=== PATIENT | male | born 1945 | race Hispanic/Latino ===

== ENCOUNTER → 2016-09-04 | Outpatient (CLI) | payer MEDICARE | END | disposition home or self-care (01) | LOC: LAB.O 06:56 | PROVIDERS: ATTEND Internal Medicine Gastroenterology | DX: Z94.4 Liver transplant status (principal) ==

== ENCOUNTER → 2016-09-24 | Outpatient (CLI) | payer MEDICARE | END | disposition home or self-care (01) | LOC: LAB.O 07:06 | PROVIDERS: ATTEND Internal Medicine Gastroenterology | DX: Z94.4 Liver transplant status (principal) ==

== ENCOUNTER → 2016-12-25 | Outpatient (CLI) | payer MEDICARE | END | disposition home or self-care (01) | LOC: LAB.O 06:59 | PROVIDERS: ATTEND Internal Medicine Gastroenterology | DX: Z94.4 Liver transplant status (principal) ==

== ENCOUNTER → 2017-04-02 | Outpatient (CLI) | payer MEDICARE | END | disposition home or self-care (01) | LOC: LAB.O 06:57 | PROVIDERS: ATTEND Internal Medicine Critical Care Medicine | DX: K76.6 Portal hypertension (principal); Z94.4 Liver transplant status ==

== ENCOUNTER → 2017-05-26 | Outpatient (CLI) | payer MEDICARE | LOC: LAB.O 06:50 | PROVIDERS: ATTEND Internal Medicine Gastroenterology | DX: Z94.4 Liver transplant status (principal) ==

== ENCOUNTER → 2017-07-07 | Outpatient (CLI) | payer MEDICARE ==
--- NOTE | 2017-07-07 12:54 | CT ---
EXAM DESCRIPTION: CT ABDOMEN AND PELVIS WITHOUT AND WITH CONTRAST CLINICAL HISTORY: R10.31,Z94.4 COMPARISON: June 14, 2016 TECHNIQUE: CT of the abdomen and pelvis are performed prior to and during IV bolus administration of 100 mL of Isovue 300. Oral contrast media is administered as well. This exam was performed according to our departmental dose-optimization program, which includes automated exposure control, adjustment of the mA and/or kV according to patient size and/or use of iterative reconstruction technique. FINDINGS: The lung bases are clear without infiltrate or effusions. The liver normally enhances without cystic or solid mass with mild diffuse fatty replacement. The gallbladder is surgically absent. A mildly 13 cm spleen is present. The adrenal glands and pancreas are unremarkable. The kidneys normally enhance without obstruction or mass or stone. A retroaortic left renal vein is noted. Mildly prominent spleno renal varices are noted with a patent splenic vein and portal vein. Morphologic changes of cirrhosis of the liver are not apparent. The stomach is not significantly distended with small bowel loops in the upper range of normal without marked distention. The distal small bowel loops are smaller and more normal in size. Mild enteritis or ileus or a low-grade incomplete obstruction would be a consideration but a high-grade obstruction is not apparent. No pelvic or abdominal ascites is noted. Mild grade 1 degenerative spondylolisthesis at L5-S1 and L4-5 with degenerative disc narrowing is noted. Mild prostatic hypertrophy and calcification is noted. The bladder is incompletely distended and appears slightly thick-walled and trabeculated. The anterior abdominal wall and inguinal region is unremarkable. IMPRESSION: 1. Minimally prominent proximal and mid small bowel loops in the upper range of normal with smaller distal small bowel loops. A mild ileus or enteritis should be considered but a low-grade incomplete obstruction cannot be completely excluded. 2. Prior cholecystectomy and mild diffuse fatty infiltration of the liver. 3. Stable but modest spleno renal varices on the left with mild splenomegaly, unchanged from unenhanced study 2015 4. Small thick walled trabeculated bladder, to a large degree likely related to incomplete distention. Electronically signed by: Hamilton Adair MD 07/07/2017 12:53 PM [employer] [employer]
== END | disposition home or self-care (01) ==
LOC: GMAB 10:26
PROVIDERS: ATTEND Family Medicine
DX: R10.31 Right lower quadrant pain (principal); Z94.4 Liver transplant status

== ENCOUNTER → 2017-08-26 | Outpatient (CLI) | payer MEDICARE | LOC: LAB.NP 06:54 | PROVIDERS: ATTEND Internal Medicine Gastroenterology | DX: Z94.4 Liver transplant status (principal) ==

== ENCOUNTER → 2018-01-27 | Outpatient (CLI) | payer MEDICARE | LOC: LAB.O 01-25 07:03 | PROVIDERS: ATTEND Internal Medicine Gastroenterology | DX: Z48.23 Encounter for aftercare following liver transplant (principal); Z79.899 Other long term (current) drug therapy ==

== ENCOUNTER → 2018-02-22 | Outpatient (CLI) | payer MEDICARE | LOC: LAB.O 07:12 | PROVIDERS: ATTEND Internal Medicine Gastroenterology | DX: Z48.23 Encounter for aftercare following liver transplant (principal); Z79.899 Other long term (current) drug therapy ==

== ENCOUNTER → 2018-04-21 | Outpatient (CLI) | payer MEDICARE | LOC: LAB.O 06:53 | PROVIDERS: ATTEND Internal Medicine Gastroenterology | DX: Z48.23 Encounter for aftercare following liver transplant (principal); Z79.899 Other long term (current) drug therapy ==

== ENCOUNTER → 2018-05-25 | Outpatient (CLI) | payer MEDICARE | LOC: LAB.O 06:49 | PROVIDERS: ATTEND Internal Medicine Gastroenterology | DX: Z79.899 Other long term (current) drug therapy (principal) ==

== ENCOUNTER → 2018-07-21 | Outpatient (CLI) | payer MEDICARE | LOC: LAB.O 07:19 | PROVIDERS: ATTEND Internal Medicine Gastroenterology | DX: Z79.899 Other long term (current) drug therapy (principal) ==

== ENCOUNTER → 2018-09-05 | Outpatient (CLI) | payer MEDICARE | LOC: LAB.O 07:01 | PROVIDERS: ATTEND Internal Medicine Gastroenterology | DX: Z48.23 Encounter for aftercare following liver transplant (principal); Z79.899 Other long term (current) drug therapy ==

== ENCOUNTER → 2018-09-20 | Outpatient (CLI) | payer MEDICARE | LOC: LAB.O 07:09 | PROVIDERS: ATTEND Internal Medicine Gastroenterology | DX: Z48.23 Encounter for aftercare following liver transplant (principal); Z79.899 Other long term (current) drug therapy ==

== ENCOUNTER → 2018-12-23 | Outpatient (CLI) | payer MEDICARE | LOC: LAB.O 07:30 | PROVIDERS: ATTEND Internal Medicine Gastroenterology | DX: Z48.23 Encounter for aftercare following liver transplant (principal); Z79.899 Other long term (current) drug therapy ==

== ENCOUNTER → 2019-02-22 | Outpatient (CLI) | payer MEDICARE | LOC: LAB.O 07:00 | PROVIDERS: ATTEND Internal Medicine Gastroenterology | DX: Z79.899 Other long term (current) drug therapy (principal); Z48.23 Encounter for aftercare following liver transplant ==

== ENCOUNTER → 2019-03-31 | Outpatient (CLI) | payer MEDICARE | LOC: LAB.O 07:01 | PROVIDERS: ATTEND Internal Medicine Gastroenterology | DX: Z48.23 Encounter for aftercare following liver transplant (principal); Z79.899 Other long term (current) drug therapy ==

== ENCOUNTER → 2019-04-26 | Outpatient (CLI) | payer MEDICARE | LOC: LAB.O 07:09 | PROVIDERS: ATTEND Internal Medicine Gastroenterology | DX: Z48.23 Encounter for aftercare following liver transplant (principal) ==

== ENCOUNTER → 2019-06-25 | Outpatient (CLI) | payer MEDICARE | LOC: LAB.O 07:04 | PROVIDERS: ATTEND Internal Medicine Gastroenterology | DX: Z94.4 Liver transplant status (principal); D69.6 Thrombocytopenia, unspecified ==

== ENCOUNTER → 2019-06-27 | Outpatient (CLI) | payer MEDICARE | LOC: LAB.O 06:58 | PROVIDERS: ATTEND Internal Medicine Gastroenterology | DX: D69.6 Thrombocytopenia, unspecified (principal); Z94.4 Liver transplant status ==

== ENCOUNTER → 2019-07-27 | Outpatient (CLI) | payer MEDICARE | LOC: LAB.O 07:07 | PROVIDERS: ATTEND Internal Medicine Gastroenterology | DX: Z48.23 Encounter for aftercare following liver transplant (principal) ==

== ENCOUNTER → 2019-09-07 | Outpatient (CLI) | payer MEDICARE | LOC: LAB.O 07:00 | PROVIDERS: ATTEND Internal Medicine Gastroenterology | DX: Z48.23 Encounter for aftercare following liver transplant (principal) ==

== ENCOUNTER → 2019-11-24 | Outpatient (CLI) | payer MEDICARE | LOC: LAB.O 14:43 | PROVIDERS: ATTEND Internal Medicine Gastroenterology | DX: Z48.23 Encounter for aftercare following liver transplant (principal); D69.6 Thrombocytopenia, unspecified ==

== ENCOUNTER → 2019-12-05 | Outpatient (CLI) | payer MEDICARE | LOC: LAB.O 07:08 | PROVIDERS: ATTEND Internal Medicine Gastroenterology | DX: Z48.23 Encounter for aftercare following liver transplant (principal) ==

== ENCOUNTER → 2019-12-19 | Outpatient (CLI) | payer MEDICARE | LOC: LAB.O 07:10 | PROVIDERS: ATTEND Internal Medicine Gastroenterology | DX: Z48.23 Encounter for aftercare following liver transplant (principal) ==

== ENCOUNTER → 2019-12-26 | Outpatient (CLI) | payer MEDICARE | LOC: LAB.O 07:14 | PROVIDERS: ATTEND Internal Medicine Medical Oncology | DX: D47.2 Monoclonal gammopathy (principal) ==

== ENCOUNTER → 2019-12-27 | Outpatient (CLI) | payer MEDICARE | LOC: LAB.O 09:09 | PROVIDERS: ATTEND Internal Medicine Medical Oncology | DX: D47.2 Monoclonal gammopathy (principal) ==

== ENCOUNTER → 2020-01-23 | Outpatient (CLI) | payer MEDICARE | LOC: LAB.O 07:05 | PROVIDERS: ATTEND Internal Medicine Gastroenterology | DX: Z48.23 Encounter for aftercare following liver transplant (principal) ==

== ENCOUNTER → 2020-03-25 | Outpatient (CLI) | payer MEDICARE | LOC: LAB.O 07:00 | PROVIDERS: ATTEND Internal Medicine Gastroenterology | DX: Z48.23 Encounter for aftercare following liver transplant (principal) ==

== ENCOUNTER → 2020-04-02 | Outpatient (CLI) | payer MEDICARE | LOC: LAB.O 06:59 | PROVIDERS: ATTEND Internal Medicine Medical Oncology | DX: C90.00 Multiple myeloma not having achieved remission (principal) ==

== ENCOUNTER → 2020-06-24 | Outpatient (CLI) | payer MEDICARE | LOC: LAB.O 07:09 | PROVIDERS: ATTEND Physician Assistant Medical | DX: C90.00 Multiple myeloma not having achieved remission (principal) ==

== ENCOUNTER → 2020-07-15 | Outpatient (CLI) | payer MEDICARE | LOC: LAB.O 07:19 | PROVIDERS: ATTEND Internal Medicine Gastroenterology | DX: Z94.4 Liver transplant status (principal) ==

== ENCOUNTER → 2020-07-23 | Outpatient (CLI) | payer MEDICARE | LOC: LAB.O 07:02 | PROVIDERS: ATTEND Internal Medicine Gastroenterology | DX: Z48.23 Encounter for aftercare following liver transplant (principal) ==

== ENCOUNTER 2020-07-30 09:59 | Emergency (ER) | payer MEDICARE ==
--- NOTE | 2020-07-30 12:15 | ED.PDOC ---
History of Present Illness - General Source: patient Exam Limitations: no limitations - History of Present Illness Initial Comments: ANEMIA. PT WAS TOLD TO COME TO ER TODAY TO REPEAT LABS. H/O GI BLEED, WAS TX AT [facility] AND FOUND JEJUNAL BLEED PER EGD. SPENT 3 WKS IN HOSPITAL AND RECEIVED 12 UNITS OF BLOOD. LIVER TRANSPLANT 8 YR AGO AT [facility]. PT DENIES SX TODAY. NO BLOOD IN STOOLS. NO HEMATEMESIS. Severity: mild Improving Factors: nothing Worsening Factors: nothing Associated Symptoms: denies symptoms <Tello Briceno - Last Filed: 07/31/20 06:59> <Charli Lentz - Last Filed: 07/31/20 14:22> - General Chief Complaint: General Stated Complaint: abnormal lab work,low hemoglobin Time Seen by Provider: 07/30/20 10:38 - History of Present Illness Allergies/Adverse Reactions: Allergies NO KNOWN ALLERGY Allergy (Verified 06/13/16 17:47) Home Medications: Ambulatory Orders Levothyroxine Sodium [Synthroid] 112 mcg PO DAILY 06/13/16 Macitentan [Opsumit] 10 mg PO DAILY 06/13/16 Magnesium Oxide (mg Supplement [Magnesium Oxide] 400 mg PO DAILY 06/13/16 Omeprazole [Prilosec] 20 mg PO BID 06/13/16 Tacrolimus [Prograf] 2 mg PO BID 06/13/16 Tadalafil (Pulmonary Hypertens [Adcirca] 40 mg DAILY 06/13/16 Review of Systems - Review of Systems Constitutional: Denies: chills, fever, malaise, weakness EENTM: States: no symptoms reported Respiratory: Denies: cough, short of breath Cardiology: Denies: chest pain, palpitations Gastrointestinal/Abdominal: Denies: abdominal pain, nausea, vomiting Genitourinary: Denies: dysuria, frequency Musculoskeletal: Denies: back pain, joint pain, neck pain Skin: Denies: lesions, rash Neurological: Denies: headache, paresthesia, weakness Endocrine: Denies: increased thirst, unexplained weight gain, unexplained weight loss Hematologic/Lymphatic: Denies: easy bleeding, easy bruising All other Systems: Reviewed and Negative <Tello Briceno - Last Filed: 07/31/20 06:59> Past Medical History (General) - Patient Medical History Hx Seizures: No Hx Stroke: No Hx Asthma: No Hx of COPD: No - pulmonary htn Hx Congestive Heart Failure: No Hx Pacemaker: No Hx Hypertension: Yes Hx Diabetes: No Hx Cancer: No Hx MRSA: No - Vaccination History Hx Influenza Vaccination: Yes Hx Pneumococcal Vaccination: Yes - Social History Hx Tobacco Use: Yes Hx Alcohol Use: No Hx Substance Use: No Hx Physical Abuse: No Hx Emotional Abuse: No <Tello Briceno - Last Filed: 07/31/20 06:59> Family Medical History - Family History Mother Family History: Unknown <Tello Briceno - Last Filed: 07/31/20 06:59> Physical Exam - Physical Exam General Appearance: Alert, No apparent distress Eye Exam: bilateral normal Ears, Nose, Throat: hearing grossly normal, normal ENT inspection, normal pharynx Neck: full range of motion, normal inspection Respiratory: lungs clear, normal breath sounds, no respiratory distress, no accessory muscle use Cardiovascular/Chest: regular rate, rhythm, no murmur Peripheral Pulses: radial,right: 2+, radial,left: 2+ Gastrointestinal/Abdominal: normal bowel sounds, non tender, soft, no organomegaly, no pulsatile mass Rectal Exam: normal exam, normal rectal tone, heme positive stool - NO GROSS BLOOD. Back Exam: normal inspection Extremity: normal range of motion, normal inspection Neurologic: no motor/sensory deficits, alert, normal mood/affect Skin Exam: normal color, warm/dry Lymphatic: no adenopathy <Tello Briceno - Last Filed: 07/31/20 06:59> Progress - Progress Progress: HGB 6.1, GIVING 2 UNTIS PRBC. HEMOCCULT POS. NO MELENA OR HEMATOCHEZIA. GI BLEED - LIKELY JEJUNAL RE-BLEED. PT MENTIONS HE HAD CLIPS PLACED ON EGD. LACTIC ACID 2.7, GIVING IVF AND PRBC. COVID NEG. COAGS NEG. EKG NSR. CMP UNREMARKABLE. 07/30/20 15:08 PROLONGED STAY: LIVER TRANSPLANT PT FROM [facility] WITH GI BLEED, ANEMIA. WE ARE ATTEMPTING TO TRANSFER TO [facility] BUT THEY TOLD US IT MIGHT NOT BE UNTIL TOMORROW THEY ARE FULL. 07/30/20 18:50 2 UNITS PRBC COMPLETED. BP 99/44. WILL BOLUS 1 L NS. CHECKING HGB. THEN LIKELY 2 MORE UNITS PRBC. 07/30/20 21:14 HGB INCREASED ONLY FROM 6.1 TO 6.2 AFTER 2 UNITS PRBC. GIVING 3 MORE UNITS, TO A TOTAL OF 5 UNITS. [facility] IS STILL FULL AND UNABLE TO TAKE THE GI BLEED RENAL TRANSPLANT TRANSFER. BP IMPROVED WITH BOLUS TO 122/57 07/31/20 00:29 PT CURRENTLY GETTING 2ND OF 3 UNITS PRBC (4TH OF 5 OVERALL). VSS. PT FEELING WELL. NO DYSPNEA OR TRANSFUSION RXN. BP REMAINING WNL (SBP 120'S). WILL CHECK H&H 1 HR AFTER 5TH OVERALL UNIT. IF STILL BELOW 7, WE WILL GIVE 2 MORE UNITS. IF ABOVE 7, WE WILL REASSESS. 07/31/20 06:59 DR. GUPTA IS ASSUMING PT CARE. I BRIEFED HIM ON THE PT'S STATUS AND PLAN. - EKG/XRAY/CT EKG: Sinus <Tello Briceno - Last Filed: 07/31/20 06:59> - Progress Progress: I, Dr. Charli Lentz DO, have assumed care of pt. I have reviewed pt's chart along with all pertinent findings of workup. Charli Lentz DO Emergency Medicine Physician [id number] Appropriate PPE of surgical mask, gown, gloves, and eye protection (if encounter >5 minutes) utilized with every patient encounter; in accordance with hospital policy. Mando Calixto is a 75-year-old male with a history of liver transplantation approximately 8 years ago who presented today complaining of acute onset of melena. Patient had blood work performed outpatient Handy was noted to be anemic and told to come to the ER. He currently denies any abdominal pain, nausea/vomiting, fever/chills, chest pain, shortness of breath, body aches, or any known sick contacts. Positive history of similar symptoms with an upper GI bleed and found to have jejunal ulcer that required repair. Again this is all been performed at [facility] where his specialist are located. Denies alleviating/aggravating factors. He has no other signs, symptoms, complaints at this time. My physical examination of patient is unremarkable. He has no abdominal tenderness, distention.He does report recent continued melena passage but no gross bleeding or hematochezia. Presents for acute UGIB with melena. Pt requires transfer to [facility] and I will continue coordinating this. Times have been added into the chart for when I took over pt; however, actual plan for transfer/admission times are unknown as they were not documented. Multiple rechecks of patient throughout ED course. Patient is stable doing well and in no acute distress. He has no signs of clinical decompensation and has had continual improvement throughout ED course. He is hungry and requesting food has been given a meal tray. 12:54 Consulted on the phone with Tacho Moran patient's coordinator at [facility]. She agrees with medication administration as indicated needed for patient. She reconfirms on the phone that [facility] is currently at max bed capacity and as soon as they have an availability for bed for the patient they will notify us. 14:04 I have consulted with Dr. Mendiola at [facility] and discussed patient's case in ED. He accepts patient for transfer. - Results/Orders Results/Orders: 07/31/20 11:30 Octreotide Acetate [SandoSTATIN] 100 mcg Sodium Chloride 0.9% 100Ml [NS (NACL 0.9%) 100ml] 100 ml IVPB PRN Octreotide Acetate [SandoSTATIN] 500 mcg Sodium Chloride 0.9% 100Ml [NS (NACL 0.9%) 100ml] 100 ml IVPB PRN Laboratory Results - last 24 hr 07/30/20 07/30/20 07/30/20 07:15 07:15 11:00 WBC 2.6 L RBC 2.18 L Hgb 6.2 L* Hct 18.9 L MCV 86.7 MCH 28.4 MCHC 32.8 L RDW 16.1 H Plt Count 181 MPV 7.9 Neutrophils % (Manual) 31.0 L Lymphocytes % (Manual) 58.0 Monocytes % (Manual) 8.0 Eosinophils 2.0 Basophils 1.0 Hypochromia 1+ Platelet Estimate Normal Anisocytosis 1+ Sodium 140 Potassium 4.1 Chloride 108 Carbon Dioxide 25 Anion Gap 11.1 L BUN 43 H Creatinine 1.40 H BUN/Creatinine Ratio 30.7 H Random Glucose 167 H Serum Osmolality 294.0 Lactic Acid Calcium 8.4 Phosphorus 2.2 L Magnesium 1.9 Total Bilirubin 0.7 Direct Bilirubin 0.1 Indirect Bilirubin 0.6 AST 13 ALT 10 Alkaline Phosphatase 54 Serum Total Protein 6.3 L Albumin 3.5 Patient ABO/Rh O POSITIVE Antibody Screen Negative Crossmatch See Detail 0107/31/20 07/31/20 19:05 07:14 12:58 WBC RBC Hgb 6.2 L* 8.4 L D 8.2 L Hct 18.9 L 25.0 L D 24.3 L MCV MCH MCHC RDW Plt Count MPV Neutrophils % (Manual) Lymphocytes % (Manual) Monocytes % (Manual) Eosinophils Basophils Hypochromia Platelet Estimate Anisocytosis Sodium Potassium Chloride Carbon Dioxide Anion Gap BUN Creatinine BUN/Creatinine Ratio Random Glucose Serum Osmolality Lactic Acid Calcium Phosphorus Magnesium Total Bilirubin Direct Bilirubin Indirect Bilirubin AST ALT Alkaline Phosphatase Serum Total Protein Albumin Patient ABO/Rh Antibody Screen Crossmatch 07/31/20 12:58 WBC RBC Hgb Hct MCV MCH MCHC RDW Plt Count MPV Neutrophils % (Manual) Lymphocytes % (Manual) Monocytes % (Manual) Eosinophils Basophils Hypochromia Platelet Estimate Anisocytosis Sodium Potassium Chloride Carbon Dioxide Anion Gap BUN Creatinine BUN/Creatinine Ratio Random Glucose Serum Osmolality Lactic Acid 1.3 Calcium Phosphorus Magnesium Total Bilirubin Direct Bilirubin Indirect Bilirubin AST ALT Alkaline Phosphatase Serum Total Protein Albumin Patient ABO/Rh Antibody Screen Crossmatch Vital Signs - 24 hr 07/30/20 07/30/20 07/30/20 15:00 16:00 17:00 Temperature 97.3 F L 97.6 F 97.6 F Pulse Rate [ 68 63 72 Right Brachial] Respiratory 14 16 14 Rate Blood Pressure 122/58 132/65 112/56 [Right Arm] O2 Sat by Pulse 98 99 97 Oximetry 07/30/20 07/30/20 07/30/20 18:00 19:00 20:00 Temperature 97.6 F Pulse Rate [ 73 69 68 Right Brachial] Respiratory 12 14 14 Rate Blood Pressure 127/55 112/61 117/55 [Right Arm] O2 Sat by Pulse 95 96 96 Oximetry 07/30/20 07/30/20 07/30/20 21:00 22:00 22:10 Temperature 97.3 F L Pulse Rate [ 70 68 68 Right Brachial] Respiratory 16 14 16 Rate Blood Pressure 122/57 115/64 134/70 [Right Arm] O2 Sat by Pulse 99 100 93 L Oximetry 07/30/20 07/30/20 07/30/20 22:15 22:30 22:32 Temperature 97.1 F L Pulse Rate [ 68 68 68 Right Brachial] Respiratory 16 16 16 Rate Blood Pressure 127/60 115/64 113/53 [Right Arm] O2 Sat by Pulse 99 99 99 Oximetry 07/30/20 07/30/20 07/31/20 23:00 23:02 00:00 Temperature 97.2 F L Pulse Rate [ 72 69 66 Right Brachial] Respiratory 14 12 16 Rate Blood Pressure 116/57 112/52 125/56 [Right Arm] O2 Sat by Pulse 98 99 99 Oximetry 07/31/20 07/31/20 07/31/20 00:02 00:50 00:52 Temperature 97.2 F L 97.5 F L 97.5 F L Pulse Rate [ 68 69 66 Right Brachial] Respiratory 14 12 16 Rate Blood Pressure 114/59 120/52 111/60 [Right Arm] O2 Sat by Pulse 98 98 99 Oximetry 07/31/20 07/31/20 07/31/20 01:00 01:07 01:22 Temperature 97.2 F L Pulse Rate [ 69 66 66 Right Brachial] Respiratory 16 16 14 Rate Blood Pressure 120/52 111/60 136/64 [Right Arm] O2 Sat by Pulse 98 99 99 Oximetry 07/31/20 07/31/20 07/31/20 01:45 01:52 02:00 Temperature Pulse Rate [ 67 66 63 Right Brachial] Respiratory 12 12 16 Rate Blood Pressure 119/60 105/54 98/45 [Right Arm] O2 Sat by Pulse 99 99 98 Oximetry 07/31/20 07/31/20 07/31/20 02:52 03:33 03:40 Temperature 97.1 F L 97.5 F L Pulse Rate [ 64 65 64 Right Brachial] Respiratory 16 16 16 Rate Blood Pressure 98/45 112/59 106/57 [Right Arm] O2 Sat by Pulse 98 97 98 Oximetry 07/31/20 07/31/20 07/31/20 04:00 04:15 04:30 Temperature 97.2 F L Pulse Rate [ 66 86 97 H Right Brachial] Respiratory 16 16 16 Rate Blood Pressure 110/49 115/66 110/49 [Right Arm] O2 Sat by Pulse 96 96 96 Oximetry 07/31/20 07/31/20 07/31/20 05:00 06:00 07:00 Temperature 97.4 F L 97.3 F L Pulse Rate [ 63 62 65 Right Brachial] Respiratory 16 12 14 Rate Blood Pressure 125/61 120/59 130/73 [Right Arm] O2 Sat by Pulse 97 99 99 Oximetry 07/31/20 07/31/20 07/31/20 08:00 09:00 10:00 Temperature 97.6 F 97.7 F Pulse Rate [ 71 70 69 Right Brachial] Respiratory 21 15 18 Rate Blood Pressure 101/69 108/66 125/62 [Right Arm] O2 Sat by Pulse 92 L 95 94 L Oximetry 07/31/20 07/31/20 07/31/20 11:00 12:00 13:00 Temperature 98.7 F Pulse Rate [ 72 66 68 Right Brachial] Respiratory 18 16 18 Rate Blood Pressure 124/67 118/57 111/60 [Right Arm] O2 Sat by Pulse 97 93 L 96 Oximetry <Charli Lentz - Last Filed: 07/31/20 14:22> Departure <Tello Briceno - Last Filed: 07/31/20 06:59> - Departure Time of Disposition: 07:00 <Charli Lentz - Last Filed: 07/31/20 14:22> - Departure Clinical Impression: Dehydration, Guaiac positive stools, H/O liver transplant Gastrointestinal tract bleed Qualifiers: GI bleed type/associated pathology: unspecified gastrointestinal hemorrhage type Qualified Code(s): K92.2 - Gastrointestinal hemorrhage, unspecified Anemia Qualifiers: Anemia type: other cause Other causes of anemia: acute posthemorrhagic Maximino lified Code(s): D62 - Acute posthemorrhagic anemia Disposition: Transfer to Hospital Condition: Serious Departure Forms: ED Discharge - Pt. Copy, Patient Portal Self Enrollment Referrals: ESDRAS CARTER MD [Primary Care Provider] - 1-2 Weeks Home Medications: Ambulatory Orders Levothyroxine Sodium [Synthroid] 112 mcg PO DAILY 06/13/16 Macitentan [Opsumit] 10 mg PO DAILY 06/13/16 Magnesium Oxide (mg Supplement [Magnesium Oxide] 400 mg PO DAILY 06/13/16 Omeprazole [Prilosec] 20 mg PO BID 06/13/16 Tacrolimus [Prograf] 2 mg PO BID 06/13/16 Tadalafil (Pulmonary Hypertens [Adcirca] 40 mg DAILY 06/13/16 Critical Care Note - Critical Care Note Total Time (mins): 143 - 38 minutes of critical care by Dr. Lentz. Remaining critical care performed by Dr. Briceno <Charli Lentz - Last Filed: 07/31/20 14:22> Transfer to Outside Facility - Transfer Information Decision to Transfer Date: 07/31/20 Decision to Transfer Time: 07:00 Reason for Transfer: specialized care not available Accepting Facility: [facility] <Charli Lentz - Last Filed: 07/31/20 14:22>
[2020-07-30] MEDS ORDERED: SODIUM CHLORIDE 0.9% 250ML 250 ML ONE (12:42)
[2020-07-30] MEDS ORDERED: SODIUM CHLORIDE 0.9% 1000ML 1,000 ML IVS ONE (18:51)
[2020-07-30] MEDS ORDERED: SODIUM CHLORIDE 0.9% 500ML 500 ML ONE (22:00)
[2020-07-31] MEDS ORDERED: PANTOPRAZOLE INJECTION 80 MG in SODIUM CHLORIDE 0.9% 100ML 80 ML IVPB ONE (11:04)
[2020-07-31] MEDS ORDERED: cefTRIAXone SODIUM 1 GM in SODIUM CHL 0.9% 50ML MIN-BAG+ 50 ML IVPB ONE (11:04)
[2020-07-31] MEDS ORDERED: SODIUM CHLORIDE 0.9% IVPB SCH (11:30)
[2020-07-31] MEDS ORDERED: OCTREOTIDE ACETATE 500 MCG in SODIUM CHLORIDE 0.9% 100ML 100 ML IVPB SCH (11:30)
[2020-07-31] MEDS ORDERED: OCTREOTIDE ACETATE IVPB SCH (11:30)
[2020-07-31 15:14] VITALS: TEMP 98.6
[2020-07-31 15:54] VITALS: BP 109/63; O2SAT 96
== END 2020-07-31 15:20 | disposition short-term general hospital (02) ==
LOC: ER 09:59
DX: K92.1 Melena (principal); D62 Acute posthemorrhagic anemia; E86.0 Dehydration; I10 Essential (primary) hypertension; Z48.23 Encounter for aftercare following liver transplant; Z87.19 Personal history of other diseases of the digestive system; Z87.891 Personal history of nicotine dependence; Z79.899 Other long term (current) drug therapy; Z20.822 Contact with and (suspected) exposure to COVID-19
CPT/HCPCS: 36415; 80048; 80053; 80076; 80197; 82270; 83605; 83735; 84100; 85014; 85018; 85025; 85610; 85730; 86850; 86900; 86901; 86922; 87486; 87581; 87633; 87635; 93005; J0696; J7030; J7040; J7050; P9016

== ENCOUNTER → 2020-08-13 | Outpatient (CLI) | payer MEDICARE | LOC: LAB.O 07:04 | PROVIDERS: ATTEND Internal Medicine Gastroenterology | DX: Z48.23 Encounter for aftercare following liver transplant (principal) ==

== ENCOUNTER → 2020-08-20 | Outpatient (CLI) | payer MEDICARE | LOC: LAB.O 07:08 | PROVIDERS: ATTEND Internal Medicine Gastroenterology | DX: Z48.23 Encounter for aftercare following liver transplant (principal) ==

== ENCOUNTER → 2020-08-27 | Outpatient (CLI) | payer MEDICARE | LOC: LAB.O 06:54 | PROVIDERS: ATTEND Internal Medicine Gastroenterology | DX: Z94.4 Liver transplant status (principal) ==